=== PATIENT | female | born 1995 | race Caucasian/White ===

== ENCOUNTER 2016-11-20 19:58 | Emergency (ER) | payer OTHER ==
[2016-11-20 23:18] LABS: BASOPHIL % 0.4 % (0-2); PLATELET COUNT 372 x10^3mcL (130-400)
[2016-11-20 23:23] LABS: RED CELL DISTRIBUTION WIDTH 19.2 % (11.5-14.5)
[2016-11-20 23:29] LABS: CALCIUM 9.3 mg/dL (8.5-10.1); CARBON DIOXIDE 27.3 mmol/L (21-32); CHLORIDE SERUM 102 mmol/L (98-107); CREATININE SERUM 0.5 mg/dL (0.6-1.0); GFR1 > 60 mL/min; GLUCOSE SERUM 91 mg/dL (74-106); POTASSIUM SERUM 3.6 mmol/L (3.5-5.1); SODIUM SERUM 139 mmol/L (136-145)
[2016-11-20 23:38] LABS: ALBUMIN 3.7 g/dL (3.4-5.0); ALKALINE PHOSPHATASE 84 U/L (46-116); ALT/SGPT 17 U/L (14-59); AST/SGOT 17 U/L (15-37); BILIRUBIN TOTAL 0.24 mg/dL (0.20-1.00); CHOLESTEROL 160 mg/dL (<200); CHOLESTEROL/HDL RATIO 3.6; HDL CHOLESTEROL 45 mg/dL (40-60); LIPASE 190 IU/L (73-393); TOTAL PROTEIN, SERUM 7.9 g/dL (6.4-8.2); TRIGLYCERIDES 85 mg/dL (<150)
[2016-11-20 23:47] LABS: FREE THYROXINE INDEX 2.2 ug/dL (1.4-4.5); T4(THYROXINE) 6.8 ug/dL (4.7-13.3)
[2016-11-20 23:51] LABS: FREE T4 0.87 ng/dL (0.76-1.46)
[2016-11-21 01:24] LABS: microscopic required? YES; urine erythrocyte NEGATIVE (NEGATIVE)
[2016-11-21 01:56] VITALS: BP 111/51
== END 2016-11-21 01:56 | disposition home or self-care (01) ==
LOC: ED 19:58
PROVIDERS: Specialist
DX: R53.1 Weakness (principal); R11.10 Vomiting, unspecified; D64.9 Anemia, unspecified
CPT/HCPCS: 83880; 84439; J3411; J3475; J3490; J7030

== ENCOUNTER 2017-04-29 23:24 | Emergency (ER) | payer OTHER ==
[~2017-04-29] VITALS: Ht 157.5 cm; Wt 59.0 kg
[2017-04-30 00:09] VITALS: Ht 157.5 cm; Wt 59.0 kg
[2017-04-30 05:23] LABS: CARBON DIOXIDE 23.3 mmol/L (21-32); CHLORIDE SERUM 105 mmol/L (98-107); CREATININE SERUM 0.5 mg/dL (0.6-1.0); GFR1 > 60 mL/min; GLUCOSE SERUM 95 mg/dL (74-106); POTASSIUM SERUM 4.1 mmol/L (3.5-5.1); SODIUM SERUM 137 mmol/L (136-145)
[2017-04-30 07:09] VITALS: BP 119/85
== END 2017-04-30 07:09 | disposition home or self-care (01) ==
LOC: ED 23:24
PROVIDERS: Emergency Medicine
DX: R42 Dizziness and giddiness (principal)
CPT/HCPCS: J8597; Q0162

== ENCOUNTER 2018-07-04 17:29 | Emergency (ER) | payer SELFPAY ==
[~2018-07-04] VITALS: Ht 157.5 cm; Wt 56.2 kg
[2018-07-04 17:42] VITALS: BP 116/51
== END 2018-07-04 19:15 | disposition left against medical advice (07) ==
LOC: ED 17:29
DX: Z53.21 Procedure and treatment not carried out due to patient leaving prior to being seen by health care provider (principal)